=== PATIENT | female | born 1995 | race Caucasian/White ===

== ENCOUNTER 2021-08-04 05:19 | Inpatient (IN) ==
[2021-08-04] MEDS ORDERED: Ondansetron 4 MG/2 ML VIAL IVP PRN (05:20)
[2021-08-04] MEDS ORDERED: Naloxone 0.4 MG/ML INJ IVP PRN ×2 (05:20→09:42)
[2021-08-04] MEDS ORDERED: Famotidine 20 MG/2 ML VIAL IVP PRN (05:20)
[2021-08-04] MEDS ORDERED: Metoclopramide 10 MG/2 ML VIAL IVP PRN ×2 (05:20→12:23)
[2021-08-04] MEDS ORDERED: Ringers Solution, Lactated 1,000 ML IVC ONE (05:22)
[2021-08-04] MEDS ORDERED: Ringers Solution, Lactated 1,000 ML IVC SCH ×2 (05:30→12:23)
[2021-08-04 05:55] LABS: Basophils % 0.6 %; Eosinophils % 0.4 %; Hematocrit 36.1 % (35.3-44.9); Hemoglobin 11.6 g/dL (11.5-15.4); Immature Granulocytes % 0.9 % (0-4); Immature Platelets 17.4 % (1.1-6.1); Lymphocytes # 2.3 K/mcL (0.6-4.6); Lymphocytes % 33.3 %; Mean Corpuscular HGB Conc 32.1 g/dL (31.6-35.5); Mean Corpuscular Hemoglobin 28.2 pg (28.0-33.3); Mean Corpuscular Volume 87.8 fL (83.0-100.0); Mean Platelet Volume 12.9 fL (9.4-12.4); Monocytes # 0.4 K/mcL (0.0-1.3); Neutrophils # 4.1 K/mcL (1.6-8.9); Platelet Count 181 K/mcL (140-400); Red Blood Count 4.11 M/mcL (3.82-4.97); Red Cell Distribution Width 12.5 % (11.5-14.5); Segmented Neutrophils % 58.8 %
[2021-08-04 06:50] LABS: Influenza A PCR Negative (Negative); Influenza B PCR Negative (Negative); Resp. Syncytial Virus PCR Negative (Negative); SARS-CoV-2 by PCR (In House) Negative (Negative)
[2021-08-04] MEDS ORDERED: *HR* Phenylephrine 10 MG/ML VIAL ONE (07:11)
[2021-08-04] MEDS ORDERED: Ondansetron 4 MG/2 ML VIAL ONE (07:11)
[2021-08-04] MEDS ORDERED: *HR* FentaNYL (PF) 100 MCG/2 ML VIAL ONE (07:12)
[2021-08-04] MEDS ORDERED: *HR* Morphine Sulfate/PF 10 MG/10 ML AMPUL ONE (07:12)
[2021-08-04] MEDS ORDERED: CeFAZolin 2,000 MG/120 ML BAG IVPB ONE (07:45)
[2021-08-04] MEDS ORDERED: Oxytocin 20 units/ LR 1000 mL 40 UNIT/2,000 ML BAG IVC ONE (07:51)
[2021-08-04] MEDS ORDERED: Acetaminophen IV 1,000 MG/100 ML BAG IVPB ONE (09:03)
[2021-08-04] MEDS ORDERED: Ketorolac 30 MG/ML VIAL ONE ×2 (09:21)
[2021-08-04] MEDS ORDERED: Promethazine 6.25 MG in Water for inj. (sterile) 20 ML IVPB PRN (09:42)
[2021-08-04] MEDS ORDERED: *HR* OxyCODONE Immed Rel 5 MG TABLET PO PRN ×2 (09:42→12:23)
[2021-08-04] MEDS ORDERED: *HR* LORazepam Oral Conc 2 MG/ML SL ONE (09:47)
[2021-08-04 09:52] LABS: Amphetamine Screen,Urine Negative ng/mL (Cutoff=1000); Barbiturate Screen,Urine Negative ng/mL (Cutoff=200); Benzodiazepines Screen,Urine Negative ng/mL (Cutoff=200); Cannabinoid Screen,Urine Negative ng/mL (Cutoff = 50); Cocaine Screen,Urine Negative ng/mL (Cutoff= 300); Opiate Screen,Urine Negative ng/mL (Cutoff=300); Phencyclidine Screen,Urine Negative ng/mL (Cutoff=25)
[2021-08-04] MEDS ORDERED: Rho Immune Globulin 1,500 UNIT SYRINGE IM ONE (12:23)
[2021-08-04] MEDS ORDERED: Oxytocin 20 units/ LR 1000 mL 20 UNIT/1,000 ML BAG IVC SCH (12:23)
[2021-08-04] MEDS ORDERED: Simethicone 80 MG TAB.CHEW PO PRN (12:23)
[2021-08-04] MEDS: Acetaminophen 325 MG TABLET PO SCH ×2 (14:18→21:02)
[2021-08-04] MEDS: Ondansetron 4 MG/2 ML VIAL IVP PRN ×2 (14:18→21:22)
[2021-08-04] MEDS: Ibuprofen 600 MG TABLET PO SCH ×2 (14:18→21:02)
[2021-08-05] MEDS: Ibuprofen 600 MG TABLET PO SCH (04:39)
[2021-08-05] MEDS: Acetaminophen 325 MG TABLET PO SCH (04:39)
[2021-08-05 04:56] VITALS: O2SAT 96
[2021-08-05 05:28] LABS: Basophils % 0.3 %; Mean Platelet Volume 13.7 fL (9.4-12.4); Monocytes % 3.8 %
[2021-08-05 05:30] LABS: Eosinophils # 0.1 K/mcL (0.0-0.6); Eosinophils % 0.6 %; Hematocrit 28.6 % (35.3-44.9); Hemoglobin 9.2 g/dL (11.5-15.4); Immature Granulocytes % 0.6 % (0-4); Immature Platelets 17.9 % (1.1-6.1); Lymphocytes % 10.4 %; Mean Corpuscular HGB Conc 32.2 g/dL (31.6-35.5); Mean Corpuscular Hemoglobin 28.4 pg (28.0-33.3); Mean Corpuscular Volume 88.3 fL (83.0-100.0); Monocytes # 0.4 K/mcL (0.0-1.3); Neutrophils # 8.2 K/mcL (1.6-8.9); Platelet Count 156 K/mcL (140-400); Red Blood Count 3.24 M/mcL (3.82-4.97); Red Cell Distribution Width 12.4 % (11.5-14.5); Segmented Neutrophils % 84.3 %; White Blood Count 9.7 K/mcL (4.3-11.1)
[2021-08-05 07:19] VITALS: BP 110/68; PULSE 59; TEMP 97.8
[2021-08-05] MEDS ORDERED: Prenatal Vit/FA 1 EACH TABLET PO SCH (09:00)
== END 2021-08-05 13:38 | disposition home or self-care (01) | DRG 785 ==
LOC: 1NENULAB 05:19 → 1NENUOBS 12:04
PROVIDERS: ADMIT Obstetrics & Gynecology; ATTEND Obstetrics & Gynecology